=== PATIENT | male | born 1980 | race Caucasian/White ===

== ENCOUNTER 2021-09-27 21:54 | Emergency (ER) | payer OTHER, SELFPAY ==
[2021-09-27 21:57] VITALS: BP 139/63; PULSE 90; RESP 18; TEMP 36.2; O2SAT 99; BMI 33.5
--- NOTE | 2021-09-27 22:11 | ED_ITS ---
HPI - Back Pain/Injury General Chief Complaint: Back Pain/Injury Stated Complaint: flank pain Time Seen by Provider: 09/27/21 21:56 Source: patient Mode of arrival: Ambulatory History of Present Illness HPI Narrative: Patient is a 41-year-old male here for evaluation of a couple days of right- sided flank pain. It has been waxing and waning since that time. Has not completely gone away. No urinary symptoms. Not worse with palpation. Does get somewhat worse with movement. Did try some Tylenol prior to arrival. Also has tried ibuprofen. These medications to seem to improve his symptoms. No fevers. No abdominal pain. Has never had a kidney stone before. No change in bowel habits. No skin rashes. Related Data Allergies Allergy/AdvReac Type Severity Reaction Status Date / Time No Known Drug Allergies Allergy Verified 09/27/21 22:22 Review of Systems Constitutional Constitutional: Denies headache(s) ENT Ears, Nose, Mouth, and Throat: Denies headache(s) Cardiovascular Cardiovascular: Denies chest pain and Denies dyspnea Respiratory Respiratory: Denies dyspnea Gastrointestinal Gastrointestinal: Denies abdominal pain, Denies nausea and Denies vomiting Genitourinary Genitourinary: Denies dysuria Musculoskeletal Musculoskeletal: Reports system reviewed and no additional complaints, except as documented Integumentary/Breasts Skin/Breast: Reports system reviewed and no additional complaints, except as documented Neurologic Neurologic: Denies headache(s) Hematologic/Lymphatic Hematologic/Lymphatic: Reports system reviewed and no additional complaints, except as documented Patient History Medical History Laceration of right lower leg Social History Smoking Status: Current every day smoker Smoking Status: Current every day smoker alcohol intake frequency: a few times a month Substance Use Type: marijuana Exam Initial Vital Signs Initial Vital Signs: Vital Signs Temperature 97.2 F L 09/27/21 21:57 Pulse Rate 90 09/27/21 21:57 Respiratory Rate 18 09/27/21 21:57 Blood Pressure 139/63 09/27/21 21:57 Pulse Oximetry 99 09/27/21 21:57 Resp Effort & Inspection: normal respiratory effort Auscultation: clear to auscultation bilaterally Cardio Rate: regular rate Rhythm: regular rhythm Back/Spine/Pelvis Back: No CVA tenderness Thoracic/Lumbar Spine: No thoracic spinal tenderness, No lumbar spinal tenderness and No straight leg raise positive Skin General: no rashes or lesions noted Neuro General: patient alert, patient awake and moves all extremities Extrem General: normal to inspection and capillary refill normal Psych Appearance: grossly normal and well kempt Course Orders Ordered: ED Orders 09/27/21 22:08 Complete Blood Count AUTO DIFF Stat Comprehensive Metabolic Panel Stat Lipase Stat 09/27/21 22:12 CT kidney ureter bladder (KUB) Stat 09/27/21 23:02 Urine Microscopic Stat Discontinued Medications Ketorolac Tromethamine (Ketorolac 30 Mg/Ml Vial) 30 mg IV NOW ONE Stop: 09/27/21 22:14 Last Admin: 09/27/21 22:20 Dose: 30 mg Documented by: ALAINA Vital Signs Vital signs: Vital Signs - 8 hr 09/27/21 21:57 Temperature 97.2 F L Pulse Rate 90 Respiratory Rate 18 Blood Pressure 139/63 Pulse Oximetry 99 MDM - Back Pain/Injury Lab Data Attestation: I reviewed the patient's lab results. Result diagrams: 09/27/21 22:08 09/27/21 22:08 Labs: Lab Results 09/27/21 09/27/21 09/27/21 Range/Units 22:08 22:08 22:08 WBC 11.9 H (4.5-11.0) X10^3/uL RBC 5.42 (4.5-5.9) X10^6/uL Hgb 15.0 (13.5-17.5) g/dL Hct 44.6 (41-53) % MCV 82.3 (80-100) fL MCH 27.7 (26-34) PG MCHC 33.7 (30-36) % RDW 13.6 (11.6-14.8) % Plt Count 285 (150-400) X10^3/uL Neut % (Auto) 58.1 (50-75) % Lymph % (Auto) 31.9 (25-40) % [place] % (Auto) 8.1 (3-14) % Eos % (Auto) 1.3 L (2-4) % Baso % (Auto) 0.6 (0-2) % Neut # (Auto) 6900 (7115-9919) /uL Lymph # (Auto) 3800 (2195-8896) /uL [place] # (Auto) 1000 H (0-900) /uL Eos # (Auto) 200 (0-450) /uL Baso # (Auto) 100 (0-100) /uL Sodium 139 (137-145) mmol/L Potassium 3.8 (3.4-5.1) mmol/L Chloride 104 (98-107) mmol/L Carbon Dioxide 30 (22-32) mmol/L BUN 13 (9-20) mg/dL Creatinine 1.24 (0.66-1.25) mg/dL Estimated GFR > 60.0 (>60) mL/min BUN/Creatinine Ratio 10.5 (6-22) Glucose 111 H (70-100) mg/dL Calcium 10.1 (8.4-10.2) mg/dL Total Bilirubin 0.4 (0.2-1.3) mg/dL AST 27 (17-59) IU/L ALT 33 (<50) IU/L Alkaline Phosphatase 52 (38-126) U/L Total Protein 8.2 (6.3-8.2) g/dL Albumin 4.6 (3.5-5.0) g/dL Globulin 3.6 (1.7-4.1) g/dL Albumin/Globulin Ratio 1.3 (1.0-2.8) Lipase 239 (23-300) U/L Urine RBC (0-5/HPF) Urine WBC (0-5/HPF) Ur Squamous Epith Cells (0-5/HPF) Calcium Oxalate Crystal Urine Bacteria (None) Urine Mucus (Negative) Ur Culture Indicated? 09/27/21 Range/Units 23:02 WBC (4.5-11.0) X10^3/uL RBC (4.5-5.9) X10^6/uL Hgb (13.5-17.5) g/dL Hct (41-53) % MCV (80-100) fL MCH (26-34) PG MCHC (30-36) % RDW (11.6-14.8) % Plt Count (150-400) X10^3/uL Neut % (Auto) (50-75) % Lymph % (Auto) (25-40) % [place] % (Auto) (3-14) % Eos % (Auto) (2-4) % Baso % (Auto) (0-2) % Neut # (Auto) (0871-5086) /uL Lymph # (Auto) (3119-7812) /uL [place] # (Auto) (0-900) /uL Eos # (Auto) (0-450) /uL Baso # (Auto) (0-100) /uL Sodium (137-145) mmol/L Potassium (3.4-5.1) mmol/L Chloride (98-107) mmol/L Carbon Dioxide (22-32) mmol/L BUN (9-20) mg/dL Creatinine (0.66-1.25) mg/dL Estimated GFR (>60) mL/min BUN/Creatinine Ratio (6-22) Glucose (70-100) mg/dL Calcium (8.4-10.2) mg/dL Total Bilirubin (0.2-1.3) mg/dL AST (17-59) IU/L ALT (<50) IU/L Alkaline Phosphatase (38-126) U/L Total Protein (6.3-8.2) g/dL Albumin (3.5-5.0) g/dL Globulin (1.7-4.1) g/dL Albumin/Globulin Ratio (1.0-2.8) Lipase (23-300) U/L Urine RBC 0-1/hpf (0-5/HPF) Urine WBC None seen (0-5/HPF) Ur Squamous Epith Cells 0-1 /hpf (0-5/HPF) Calcium Oxalate Crystal Few H Urine Bacteria Occasional (0-1) (None) Urine Mucus 1+ H (Negative) Ur Culture Indicated? Cult not indicated Urine Dip Bedside Urine Glucose Negative Bedside Urine Bilirubin - Negative Bedside Urine Ketone - Negative Urine Specific [place] 1.030 Bedside Urine Occult Blood - Negative Bedside Urine pH 6.0 Bedside Urine Protein +/- 15 Bedside Urine Urobilinogen +/- 1mg Bedside Urine Nitrite - Negative Bedside Urine Leukocytes - Negative Esterase Imaging Data CT scan - abdomen/pelvis: Radiologist's Impression: [address] [address] [address] Scan Report Signed Patient: Onur Lamas MR#: [id number] : 1980 Acct:[id number] Age/Sex: 41 / M Date of Service: 09/27/21 Loc: ED Accession Number: [id number] ?? Procedure: CT kidney ureter bladder (KUB) Ordering Provider: Onur Whitehead D.O. PROCEDURE:? CT KIDNEY URETER BLADDER (KUB) ? INDICATIONS:? Right flank pain, eval for stone ? TECHNIQUE:? Axial sections were acquired from the lung bases to the pubic symphysis.? Coronal and sagittal reformats were performed.? For radiation dose reduction, the following was used: ?automated exposure control, adjustment of mA and/or kV according to patient size.? ? COMPARISON:? None. ? FINDINGS:? Image quality:? Excellent.? ? Lung bases:? Unremarkable.? ? Heart:? No significant findings. ? URINARY: Right Kidney: ? No stones or hydronephrosis.? 2.1 centimeter hypoattenuating lesion noted in the anterior margin of the right kidney which may represent a cyst, however lesion cannot be definitively characterized without the benefit of intravenous contrast.? Right Ureter:? No hydroureter.? ? Left Kidney: ? No stones or hydronephrosis. Left Ureter:? No hydroureter.? ? Bladder:? Normal wall thickness. No stones. ? ? ? ABDOMEN: Liver:? Unremarkable.? ? Gallbladder:? Unremarkable.? ? Biliary ducts:? Unremarkable.? ? Pancreas:? Unremarkable.? ? Spleen:? Unremarkable.? ? Adrenal Glands:? Unremarkable.? ? ? Stomach and Bowel:? Stomach, small bowel loops, and colon are unremarkable. Scattered colonic diverticuli without evidence of diverticulitis.? Appendix is normal. Peritoneum:? No abnormal intraperitoneal fluid.? No free air.? ? Ventral Wall: ? Small fat containing umbilical hernia. Abdominal Nodes:? No enlarged retroperitoneal or mesenteric lymph nodes.? Vessels:? Aorta and inferior vena cava are normal in size.? ? PELVIS: Pelvic Organs:? Unremarkable.? ? Pelvic Nodes: Unremarkable. Miscellaneous:? Small fat containing right inguinal hernia. ? Bones:? Unremarkable. ? IMPRESSION: ? 1. No renal stone or hydronephrosis. ? 2. Appendix is normal. ? 3. Colonic diverticulosis without evidence of diverticulitis. ? ? ? Dictated by: Alyssa Landry MD, PhD on 09/27/2021 at 22:41 ? ? Approved by: Alyssa Landry MD, PhD on 09/27/2021 at 22:45?? MDM Narrative Medical decision making narrative: Labs are unremarkable. Urine shows no signs of infection. CT scan does not show any signs of appendicitis nor ureteral stones. Low suspicion for pyelonephritis. He has no rash over the area that would be concerning for zoster. Given his workup. The emergency department I do suspect this is muscular in origin. He does seem to get better with Tylenol and nonsteroidal anti-inflammatories. I feel that we can hold on further workup for now. Patient was provided reassurance and was given the results of his workup here in the ER. He will continue his [id number] medications. He was given return precautions. He expressed understanding agreement. Discharge Plan Departure Patient Disposition: Home Clinical Impression: Acute right flank pain Instructions: Low Back Pain Activity Restrictions/Additional Instructions: The CT scan and labs here in the emergency department are very reassuring. There is no signs of any infection. No signs of kidney stone. You can continue to take the acetaminophen and the naproxen for the discomfort. Contact your primary doctor for a follow-up. Return to the emergency department for any new or worsening symptoms.
--- NOTE | 2021-09-27 22:12 | DI.CT.S_ITS ---
PROCEDURE: CT KIDNEY URETER BLADDER (KUB) INDICATIONS: Right flank pain, eval for stone TECHNIQUE: Axial sections were acquired from the lung bases to the pubic symphysis. Coronal and sagittal reformats were performed. For radiation dose reduction, the following was used: automated exposure control, adjustment of mA and/or kV according to patient size. COMPARISON: None. FINDINGS: Image quality: Excellent. Lung bases: Unremarkable. Heart: No significant findings. URINARY: Right Kidney: No stones or hydronephrosis. 2.1 centimeter hypoattenuating lesion noted in the anterior margin of the right kidney which may represent a cyst, however lesion cannot be definitively characterized without the benefit of intravenous contrast. Right Ureter: No hydroureter. Left Kidney: No stones or hydronephrosis. Left Ureter: No hydroureter. Bladder: Normal wall thickness. No stones. ABDOMEN: Liver: Unremarkable. Gallbladder: Unremarkable. Biliary ducts: Unremarkable. Pancreas: Unremarkable. Spleen: Unremarkable. Adrenal Glands: Unremarkable. Stomach and Bowel: Stomach, small bowel loops, and colon are unremarkable. Scattered colonic diverticuli without evidence of diverticulitis. Appendix is normal. Peritoneum: No abnormal intraperitoneal fluid. No free air. Ventral Wall: Small fat containing umbilical hernia. Abdominal Nodes: No enlarged retroperitoneal or mesenteric lymph nodes. Vessels: Aorta and inferior vena cava are normal in size. PELVIS: Pelvic Organs: Unremarkable. Pelvic Nodes: Unremarkable. Miscellaneous: Small fat containing right inguinal hernia. Bones: Unremarkable. IMPRESSION: 1. No renal stone or hydronephrosis. 2. Appendix is normal. 3. Colonic diverticulosis without evidence of diverticulitis. Dictated by: Alyssa Landry MD, PhD on 09/27/2021 at 22:41 Approved by: Alyssa Landry MD, PhD on 09/27/2021 at 22:45
[2021-09-27 22:16] LABS: Add Manual Diff / Slide Review NO; Basophils Absolute Auto 100 /uL (0-100); Basophils Percent Auto 0.6 % (0-2); Eosinophils Absolute Auto 200 /uL (0-450); Eosinophils Percent Auto 1.3 % (2-4); Hematocrit 44.6 % (41-53); Lymphocytes Absolute Auto 3800 /uL (1100-4500); Lymphocytes Percent Auto 31.9 % (25-40); Mean Corpuscular HGB Conc 33.7 % (30-36); Mean Corpuscular Hemoglobin 27.7 PG (26-34); Mean Corpuscular Volume 82.3 fL (80-100); Monocytes Absolute Auto 1000 /uL (0-900); Monocytes Percent Auto 8.1 % (3-14); Neutrophils Absolute Auto 6900 /uL (1500-7000); Neutrophils Percent Auto 58.1 % (50-75); Platelet Count 285 X10^3/uL (150-400); Red Blood Cell Count 5.42 X10^6/uL (4.5-5.9); Red Cell Distribution Width 13.6 % (11.6-14.8); White Blood Cell Count 11.9 X10^3/uL (4.5-11.0)
[2021-09-27] MEDS: KETOROLAC 30 MG/ML VIAL IV (22:20)
[2021-09-27 22:44] LABS: Lipase 239 U/L (23-300)
[2021-09-27 22:45] LABS: Alanine Aminotransferase 33 IU/L (<50); Albumin 4.6 g/dL (3.5-5.0); Albumin Globulin Ratio 1.3 (1.0-2.8); Alkaline Phosphatase 52 U/L (38-126); Aspartate Aminotransferase 27 IU/L (17-59); BUN Creatinine Ratio 10.5 (6-22); Bilirubin Total 0.4 mg/dL (0.2-1.3); Blood Urea Nitrogen 13 mg/dL (9-20); Calcium 10.1 mg/dL (8.4-10.2); Carbon Dioxide 30 mmol/L (22-32); Chloride 104 mmol/L (98-107); Estimated Glomerular Filt Rate > 60.0 mL/min (>60); Globulin 3.6 g/dL (1.7-4.1); Glucose 111 mg/dL (70-100); HEMOLYSIS < 15 (0-50); Potassium 3.8 mmol/L (3.4-5.1); Sodium 139 mmol/L (137-145); Total Protein 8.2 g/dL (6.3-8.2)
[2021-09-27 23:28] LABS: Bacteria Urine Occasional (0-1); Calcium Oxalate Crystals Urine Few; Culture Indicated Urine Cult Not Indicated; Mucus Urine 1+ (Negative); RBC Urine 0-1/HPF (0-5/HPF); Squamous Epithelial Cell Urine 0-1 /HPF (0-5/HPF); WBC Urine None Seen (0-5/HPF)
== END 2021-09-27 23:14 | disposition home or self-care (01) ==
PROVIDERS: Emergency Provider Emergency Medicine
DX: R10.9 Unspecified abdominal pain (principal)
CPT/HCPCS: 36415; 74176; 80053; 81003; 81015; 83690; 85025; 96374; 99284; J1885

== ENCOUNTER → 2023-02-13 07:18 | Outpatient (CLI) | payer OTHER, SELFPAY ==
[2023-02-13 07:57] LABS: Cholesterol 217 mg/dL (140-199); HDL Cholesterol 60 mg/dL (40-60); LDL Cholesterol Calculated 141 mg/dL (<100); Triglycerides 82 mg/dL (35-150)
[2023-02-14 12:30] LABS: x Labcorp Estim. Avg Glu (eAG) 114 mg/dL (.); x Labcorp Hemoglobin A1c 5.6 % (4.8-5.6)
== END ==
PROVIDERS: PCP Family Medicine; Referring Provider Family Medicine; Visit Provider Family Medicine
DX: Z13.220 Encounter for screening for lipoid disorders (principal)
CPT/HCPCS: 36415; 80061; 83036